=== PATIENT | female | born 1960 | race Caucasian/White ===

== ENCOUNTER 2020-09-17 18:34 | Emergency (ER) | payer OTHER, SELFPAY ==
[2020-09-17 18:45] VITALS: BP 152/73; PULSE 85; RESP 20; TEMP 36.8; O2SAT 98
[2020-09-17 18:51] VITALS: BP 152/73; PULSE 85; RESP 20; TEMP 36.8; O2SAT 98
--- NOTE | 2020-09-17 19:28 | ED.GENADULT ---
HPI - General Adult General Chief complaint: Skin/Abscess/Foreign Body Stated complaint: Tick Bite Source: patient and RN notes reviewed Mode of arrival: ambulatory Limitations: no limitations History of Present Illness HPI narrative: 60-year-old female presents with complaints of tick bite to the right lower back with redness and swelling for the past 5 days. ?Ana Rosa reports some improvement in swelling but increase in redness over the past 2-3 days. ?Ana Rosa reports being in [facility] (a wooden area) in which she obtained a tick over the past weekend, Sunday morning felt something biting her lower back, snatched it off and flushed it down the toilet. ?Neosporin to wound without relief. ?Denies new detergent, personal hygiene products or laundry detergents. ?No burning, bleeding, or drainage. ?Denies fever, chills, headaches, weakness, fatigue, myalgia, facial swelling, or tongue swelling. ?Denies dyspnea. ?Remains active. ?The patient reports she has not been diagnosed with COVID-19.? The patient reports she is not waiting for the results of a COVID-19 lab test. ?The patient reports she does not have a new or worsening cough.? The patient reports she does not have any rhinorrhea, congestion, sore throat, loss of taste or smell, nausea, vomiting, abdominal pain, and diarrhea.? Tolerating po intake well.? Denies concerns for COVID-19 or exposures.? At this time, the patient is not suspected of having COVID-19.?? Some parts of this dictation were generated by voice recognition software and may contain typographical and/or grammatical inaccuracies. Related Data Allergies Allergy/AdvReac Type Severity Reaction Status Date / Time No Known Allergies Allergy Verified 09/17/20 18:38 Review of Systems Review of Systems: Narrative: CONSTITUTIONAL: Denies fever, chills, sweats. EYES: Denies visual changes, redness, discharge. ENT: Denies otalgia, rhinorrhea, congestion, sore throat. CARDIOVASCULAR: Denies chest pain, palpitations, edema. RESPIRATORY: Denies dyspnea, wheezing, cough. GASTROINTESTINAL: Denies abdominal pain, nausea, vomiting, diarrhea. SKIN: Complaints of tick bite to the right lower back with redness and swelling. Denies drainage. MUSCULOSKELETAL: Denies acute back pain, joint pain, or myalgia. NEUROLOGIC: Denies numbness or focal weakness. PSYCHIATRIC: Denies anxiety or depression. All systems reviewed & are unremarkable except as noted in HPI and below. [facility] Past Medical History Medical History (Updated 09/18/20 @ 00:00 by Background Daemon) History of gastroesophageal reflux (GERD) Hx of small bowel obstruction Supraventricular tachycardia had ablation Surgical History Surgical History History of esophagogastroduodenoscopy (EGD) In November 2008 with findings of erosive GERD and incipient hernia History of fusion of cervical spine History of robot-assisted laparoscopic hysterectomy Dec. 2015 Robotic supracervical hysterectomy with bilateral salpingo-oophorectomy and sacrocolpopexy robotically Hx of cholecystectomy Open cholecystectomy in 2005 Family History Family History Father Hypertension Family history of lung cancer Family history of coronary artery disease Sibling Family history of primary malignant neoplasm of liver Family history of malignant neoplasm of breast in first degree relative Social History Social History Smoking packs per day: 1 Smoking cigarettes per day: 20.0 Smoking status: Former smoker Smoking end date: 04/09/03 Alcohol intake: current Drinks per week: 3 Substance use: never Gender identity (if verbalized by the patient): Female Spiritual care concerns: No Agree to blood products: Yes Comments At time of signature, agree with the nurse past medical, surgical, social, and family
== END 2020-09-17 19:58 | disposition home or self-care (01) ==
PROVIDERS: Emergency Provider Nurse Practitioner Family; PCP Family Medicine
DX: L03.312 Cellulitis of back [any part except buttock and flank] (principal); S30.860A Insect bite (nonvenomous) of lower back and pelvis, initial encounter; W57.XXXA Bitten or stung by nonvenomous insect and other nonvenomous arthropods, initial encounter; Z87.891 Personal history of nicotine dependence; K21.9 Gastro-esophageal reflux disease without esophagitis
CPT/HCPCS: 99213; G0463

== ENCOUNTER 2021-03-29 07:56 | Outpatient (RCR) | payer OTHER, SELFPAY ==
[2021-03-29] MEDS: ACETAMINOPHEN 325 MG TABLET 650 MG PO (08:31)
[2021-03-29] MEDS: diphenhydrAMINE HCl CAP 25 MG CAPSULE PO (08:31)
[2021-03-29] MEDS: FAMOTIDINE 20 MG TABLET PO (08:31)
[2021-03-29 08:35] VITALS: BP 144/78; PULSE 88; RESP 20; TEMP 36.6; O2SAT 98
[2021-03-29 09:58] VITALS: BP 136/78
--- NOTE | 2021-03-30 09:31 | PC.NURSE ---
Called Ms Dudley and she stated she is doing well today and has no questions at this time.
== END 2021-03-29 17:00 ==
LOC: AMCINF 07:56
PROVIDERS: PCP Family Medicine; Visit Provider Internal Medicine Hematology & Oncology
DX: U07.1 COVID-19 (principal); I10 Essential (primary) hypertension
CPT/HCPCS: A9270; M0245; Q0245